=== PATIENT | male | born 1960 | race Caucasian/White ===

== ENCOUNTER 2018-03-29 19:57 | Outpatient (CLI) | payer MEDICARE, OTHER | END 2018-03-29 19:58 | disposition home or self-care (01) | LOC: C.SLEEP 19:57 ==

== ENCOUNTER 2018-05-09 18:58 | Outpatient (CLI) | payer MEDICARE, OTHER | END 2018-05-09 18:59 | disposition home or self-care (01) | LOC: C.SLEEP 18:59 ==